=== PATIENT | female | born 1970 | race Caucasian/White ===

== ENCOUNTER 2024-02-20 15:27 | Outpatient (CLI) | payer OTHER, SELFPAY ==
--- NOTE | ~2024-02-20 | MR_ITS ---
MRI of the right foot CLINICAL HISTORY: Neuroma TECHNIQUE: Axial T1-weighted, T1 fat-sat, T2 fat-sat images, sagittal T1-weighted and STIR images, an d coronal T1-weighted and T2 fat-sat images were performed. Following intravenous administration of 1 5 cc MultiHance gadolinium, T1-weighted fat-sat imaging was performed in the axial, coronal, and sagi ttal planes. FINDINGS: Bone marrow signals are unremarkable. No fracture, marrow edema, or evidence for ostial mye litis. No periosteal reaction seen. Joint spaces are relatively well preserved throughout the foot. N o significant degenerative change. No erosive change. No significant joint effusion. Flexor and extensor tendons are intact. There is a 1.4 x 0.9 x 0.6 cystic mass with thin internal sep tations along the plantar aspect of the midshaft of the third metatarsal (sagittal image 10, axial im age 25). There is some peripheral enhancement which is somewhat thicker than is typically seen for si mple cystic lesion, especially along the superior margin of the lesion (series 11 image 26 for exampl e). No other soft tissue mass or fluid collection evident. Visualized musculature otherwise unremarka ble. No distinct evidence for neuroma or intermetatarsal bursitis otherwise. IMPRESSION: 1. 4 x 0.9 x 0.6 cm mildly complex cystic mass along the plantar aspect of the third metatarsal shaft , as detailed above. Imaging characteristics are somewhat nonspecific, though this is favored to repr esent a benign lesion. Recommend follow-up exam in 6 months to reassess for stability given some thic kened peripheral enhancement. Reviewed, dictated and finalized at [facility]. IMPRESSION: 1. 4 x 0.9 x 0.6 cm mildly complex cystic mass along the plantar aspect of the third metatarsal shaft, as detailed above. Imaging characteristics are somewhat nonspecific, though this is favored to represent a benign lesion. Recommend fo llow-up exam in 6 months to reassess for stability given some thickened periphe ral enhancement.
== END 2024-02-20 15:28 | disposition home or self-care (01) ==
PROVIDERS: Visit Provider Podiatrist Foot & Ankle Surgery
DX: G57.61 Lesion of plantar nerve, right lower limb (principal)
CPT/HCPCS: 73720; A9577